=== PATIENT | male | born 1970 | race Caucasian/White ===

== ENCOUNTER 2019-10-18 11:51 | Emergency (ER) | payer BC ==
[~2019-10-18] VITALS: Ht 180.3 cm; Wt 79.5 kg
[2019-10-18] MEDS ORDERED: CEPH500C5 PO (12:53)
[2019-10-18] MEDS ORDERED: LACT1CAP60 PO (12:53)
[2019-10-18] MEDS ORDERED: PRED20TA PO (13:03)
[2019-10-18 13:35] VITALS: BP 132/81
== END 2019-10-18 13:36 | disposition home or self-care (01) ==
LOC: ER 11:51
DX: M10.9 Gout, unspecified (principal); M79.675 Pain in left toe(s); Z72.89 Other problems related to lifestyle; Z79.2 Long term (current) use of antibiotics; Z79.899 Other long term (current) drug therapy
CPT/HCPCS: 73630; 99283